=== PATIENT | male | born 1955 | race Caucasian/White ===

== ENCOUNTER → 2017-04-18 | Day surgery (SDC) | payer OTHER ==
[~2017-04-18] MED LIST: ACET325T9 PO; ACET500T33 PO; ALLO100T PO; CETI10TA22 PO; CYCL10TA2 PO; HYDR12.53 PO; IBUP-1027 PO; IV RINGERS,LACTATED 1000ML 1,000 ML IV SCH; LIDOCAINE 1% PF 2 ML VIAL. ID PRN; LUTE20TA PO; METF500T4 PO; MIDAZOLAM HCL/PF 2 MG/2 ML VIAL. IV PRN; NAPR220T70 PO; OXYC-323 PO; POTASSIUM CHLO10 MEQ PO; PROPOFOL 40 ML IV ONE; SULF1TAB24 PO; SULI200T2 PO; fentaNYL PF VIAL 100 MCG/2 ML VIAL IV PRN
[2017-04-18 13:10] VITALS: BP 130/86
--- NOTE | 2017-04-19 11:15 | PATHOLOGY ---
PATHOLOGY REPORT * * * * * * * * FINAL DIAGNOSIS: Colon biopsies, sigmoid polyps: - Tubular adenomas, multiple. - Hyperplastic polyps, few. COMMENT: Sections of the sigmoid colon biopsies reveal multiple tubular adenomas and a few hyperplastic polyps. There is no high grade dysplasia or evidence of malignancy. (JPM:mml; 04/19/2017) REPORT ELECTRONICALLY SIGNED BY: Keith Mulligan M.D. DATE/TIME: 04/19/2017 11:14 * * * * * * * * GROSS PATHOLOGY: Received in formalin labeled "Emiliano Fernandez, sigmoid polyps," are multiple (more than 10) segments of murphy soft tissue measuring 2.6 x 1.1 x 0.4 cm in aggregate dimensions and ranging from 0.2 to 0.4 cm in maximum dimension. The specimen is submitted entirely in cassette A1. (TSD; 04/18/2017) INITIAL CPT CODE(S): A; 63931 Professional services [place] [facility] [place] [address] Technical services performed by [facility] at [address] [place] [address]. SPECIMEN(S) RECEIVED: A.Sigmoid polyps CLINICAL HISTORY: Screening PATIENT: EMILIANO FERNANDEZ /AGE: 1206/06/1955 (Age: 61) PATIENT #: [id number] ALT CASE #: SPECIMEN COLLECTION DATE: 04/18/2017 SPECIMEN RECEIVED DATE: 04/18/2017 [facility] - [address] [place] [address] - PHONE: [phone] * * * END OF REPORT * * *
== END | disposition home or self-care (01) ==
LOC: SURG 11:14
PROVIDERS: ATTEND Internal Medicine Gastroenterology
DX: Z12.11 Encounter for screening for malignant neoplasm of colon (principal); D12.5 Benign neoplasm of sigmoid colon; Z80.0 Family history of malignant neoplasm of digestive organs; D64.0 Hereditary sideroblastic anemia; N18.9 Chronic kidney disease, unspecified; E11.22 Type 2 diabetes mellitus with diabetic chronic kidney disease; E66.9 Obesity, unspecified; Z98.890 Other specified postprocedural states; Z87.442 Personal history of urinary calculi; Z86.39 Personal history of other endocrine, nutritional and metabolic disease; Z88.1 Allergy status to other antibiotic agents; Z88.0 Allergy status to penicillin; Z88.8 Allergy status to other drugs, medicaments and biological substances
CPT/HCPCS: 45385; 82962; 88305; J2704

== ENCOUNTER → 2021-04-15 | Outpatient (CLI) | payer OTHER ==
[2017-04-18 13:10] VITALS: BP 130/86
[~2021-04-15] MED LIST changes: -CETI10TA22 PO; +CETI10TA74 PO; -HYDR12.53 PO; +HYDR12.575 PO; -IV RINGERS,LACTATED 1000ML 1,000 ML IV SCH; -LIDOCAINE 1% PF 2 ML VIAL. ID PRN; +METF500T16 PO; -METF500T4 PO; -MIDAZOLAM HCL/PF 2 MG/2 ML VIAL. IV PRN; -OXYC-323 PO; +OXYC1TAB15 PO; +POTA10TA12 PO; -POTASSIUM CHLO10 MEQ PO; -PROPOFOL 40 ML IV ONE; -fentaNYL PF VIAL 100 MCG/2 ML VIAL IV PRN
--- NOTE | 2021-04-15 13:00 | KCIC ---
EXAM: CT CORONARY CALCIUM SCORING. HISTORY: Coronary risk factors. Calcium scoring is requested. COMPARISON: None. FINDINGS: Limited noncontrast CT of the chest was performed for coronary calcium scoring. Refer to e worksheets for full detail. *One or more of the following individualized dose reduction techniques were utilized for this examination: 1. Automated exposure control. 2. Adjustment of the mA and/or kV according to patient size. 3. Use of iterative reconstruction technique. Coronary calcium scoring is as follows: LMA: 0. LAD: 4.5. LCX: 2.3. RCA: 14.5. PDA: 0. Total: 21.3. The included portions of the chest reveal the following. Bone windows reveal no suspicious lesions. I mages of the upper abdomen reveal calcified granulomas in the liver and spleen. There are no pathologically enlarged mediastinal lymph nodes. Calcified mediastinal lymph nodes are l ikely secondary to old granulomatous disease. There is no pleural or pericardial effusion. The heart is not enlarged. A calcified granuloma in the right lower lobe measures 1.6 cm. There is a 4 mm nodule in the right lo wer lobe on image 40. IMPRESSION: 1. Coronary calcium score 21.3. 2. An uncalcified 4 mm right lower lobe nodule is most likely benign and requires no further follow-u p at this small size in the absence of strong risk factors. If there are strong risk factors and long -term stability is not already known, follow-up could be considered in one year. Electronically signed by: Carol Connolly MD (04/15/2021 12:58 PM) [id number]
== END ==
LOC: KCIC CT 12:19
PROVIDERS: ATTEND Physician Assistant
DX: R91.1 Solitary pulmonary nodule (principal); J84.10 Pulmonary fibrosis, unspecified; R59.0 Localized enlarged lymph nodes; Z82.49 Family history of ischemic heart disease and other diseases of the circulatory system
CPT/HCPCS: 75571